=== PATIENT | female | born 1950 | race Caucasian/White ===

== ENCOUNTER 2017-10-31 18:53 | Emergency (ER) | payer MEDICARE, OTHER ==
--- NOTE | 2017-10-31 19:23 | ED PDOC ---
HPI: CCC, URI, Sore Throat Time Seen by Provider: 10/31/17 18:56 Chief Complaint (Nursing): ENT Problem Chief Complaint (Provider): FB History Per: Patient Additional Complaint(s): 67 yo female, PMH of anxiety, Patient reports she was drinking home made OJ, and a seed from the juice is now stuck in her throat. Complaints of difficulty swallowing and pain to her throat. Denies SOB. Able to speak in complete sentences. Swallowing saliva without difficulty. Past Medical History Reviewed: Nursing Documentation, Vital Signs Vital Signs: Last Vital Signs Temp 98.5 F 10/31/17 18:55 Pulse 73 10/31/17 18:55 Resp 16 10/31/17 18:55 BP 123/50 L 10/31/17 18:55 Pulse Ox 99 10/31/17 18:55 - Medical History PMH: Arthritis, Asthma Denies: Chronic Kidney Disease - Surgical History Surgical History: Cholecystectomy - Family History Family History: States: Unknown Family Hx - Living Arrangements Living Arrangements: With Family - Social History Current smoker - smoking cessation education provided: No Alcohol: None Drugs: Denies - Immunization History Hx Tetanus Toxoid Vaccination: No Hx Influenza Vaccination: No Hx Pneumococcal Vaccination: No - Home Medications Home Medications: Ambulatory Orders Medication Instructions Recorded Naproxen [Naprosyn] 500 mg PO Q12H #20 tab 11/12/14 Albuterol 0.083% [Albuterol 3 ml IH QID #100 neb 04/26/16 Sulfate 3 Ml] Albuterol HFA [Ventolin HFA 90 04/26/16 mcg/actuation (8 g)] Albuterol HFA [Ventolin HFA 90 1 puff IH QID PRN #1 puff 04/26/16 mcg/actuation (8 g)] Inhaler, Assist Devices [Space 1 each MC PRN #1 spacer 04/26/16 Chamber Plus] Prednisone 1 mg PO DAILY #5 tablet 04/26/16 - Allergies Allergies/Adverse Reactions: Allergies Allergy/AdvReac Type Severity Reaction Status Date / Time No Known Allergies Allergy Verified 04/26/16 16:11 Review of Systems ROS Statement: Except As Marked, All Systems Reviewed And Found Negative ENT: Positive for: Throat Pain Physical Exam - Reviewed Nursing Documentation Reviewed: Yes Vital Signs Reviewed: Yes - Physical Exam Appears: Positive for: Well, Non-toxic, No Acute Distress Head Exam: Positive for: ATRAUMATIC, NORMAL INSPECTION, NORMOCEPHALIC Skin: Positive for: Normal Color, Warm, DRY Eye Exam: Positive for: EOMI, Normal appearance, PERRL ENT: Negative for: Tonsillar Exudate, Tonsillar Swelling Neck: Positive for: Normal, Painless ROM Cardiovascular/Chest: Positive for: Regular Rate, Rhythm Respiratory: Positive for: CNT, Normal Breath Sounds Gastrointestinal/Abdominal: Positive for: Normal Exam, Soft Back: Positive for: Normal Inspection Extremity: Positive for: Normal ROM Neurologic/Psych: Positive for: Alert, Oriented - ECG O2 Sat by Pulse Oximetry: 99 Medical Decision Making Medical Decision Making: CT ordered to r/o FB Case endorsed to STANISLAW Adair at 2000 pending diagnostic review and re-eval Disposition - Clinical Impression Clinical Impression: Foreign body - Patient ED Disposition Is Patient to be Admitted: Transfer of Care - Disposition Disposition: Transfer of Care Disposition Time: 19:24 Condition: STABLE
[2017-10-31 19:43] LABS: BASO % 0.6 % (0.0-2.0); EOS # 0.2 K/uL (0.0-0.7); EOS % 2.2 % (0.0-4.0); HEMOGLOBIN 11.9 g/dL (12.0-16.0); LYMPH # 2.8 K/uL (1.0-4.3); MEAN CELL VOLUME 86.7 fl (81.0-99.0); MEAN CORPUSCULAR HGB CONC 33.4 g/dL (33.0-37.0); MEAN PLATELET VOLUME 7.9 fl (7.2-11.7); MONO # 0.6 K/uL (0.0-0.8); MONO % 7.7 % (0.0-10.0); NEUT # 3.9 K/uL (1.8-7.0); NEUT % 52.5 % (50.0-75.0); RBC 4.12 Mil/uL (3.80-5.20); RED CELL DISTRIBUTION WIDTH 14.5 % (11.5-14.5); WHITE BLOOD COUNT 7.5 K/uL (4.8-10.8)
[2017-10-31 19:57] LABS: ALB/GLOB RATIO 1.3 (1.0-2.1); ALBUMIN 4.1 g/dL (3.5-5.0); ALT/SGPT 20 U/L (9-52); AST/SGOT 24 U/L (14-36); BLOOD UREA NITROGEN 13 mg/dl (7-17); CALCIUM 9.4 mg/dL (8.4-10.2); GFR AFRICAN-AMERICAN > 60; GFR NON-AFRICAN AMERICAN > 60
[2017-10-31] MEDS ORDERED: Iohexol 300 100 ML IJ ONE (20:55)
[2017-10-31] MEDS ORDERED: Sodium Chloride 0.9% 50 ML IV ONE (20:56)
[2017-10-31 23:05] VITALS: BP 131/61; TEMP 98.6; O2SAT 98
--- NOTE | 2017-10-31 23:38 | ED PDOC ---
- Laboratory Results Result Diagrams: 10/31/17 19:35 10/31/17 19:35 - ECG O2 Sat by Pulse Oximetry: 98 Medical Decision Making Medical Decision Making: Case endorsed to me from CHERISE Whyte at [address] neck: FINDINGS: Oropharynx: Unremarkable. No significant tonsillar enlargement. No peritonsillar abscess. Hypopharynx: Unremarkable. Larynx: Unremarkable. Normal epiglottis. Trachea: Unremarkable. Retropharyngeal space: Unremarkable. Submandibular/parotid glands: Unremarkable. Glands are normal in size. Thyroid: Unremarkable. No enlarged or calcified nodules. Bones/joints: No acute fracture. Soft tissues: Unremarkable. Vasculature: No acute findings. Lymph nodes: Unremarkable. No lymphadenopathy. Lung apices: Unremarkable as visualized. IMPRESSION: No acute findings. No foreign body identified in the airway or upper esophagus. Dictated and Authenticated by: Du Allen MD 10/31/2017 10:24 PM Eastern Time ([place] & [place]) 2300 On re-evaluation, patient reports improvement of symptoms, denies any dyspnea, SOB. On exam, patient remains AAOx3, in no acute distress, speaking in full sentences, no drooling. T 98.6 P 82 R 16 R 16 O2sat 98%RA. Diagnostic results d/w the patient in great detail. Based on history, exam and diagnostic results, plan will be for outpatient follow up. Patient instructed to follow-up with pmd or referral provided in 1-2 days without fail. Advised to take medication as prescribed. Return to the emergency room at any time for any new or worsening symptoms. Patient states she fully agrees with and understands discharge instructions. States that she agrees with the plan and disposition. Verbalized and repeated discharge instructions and plan. I have given the patient opportunity to ask any additional questions. Disposition Counseled Patient/Family Regarding: Studies Performed, Diagnosis, Need For Followup - Clinical Impression Clinical Impression: Foreign body - POA Present On Arrival: None - Disposition Referrals: Pedro Duran MD [Staff Provider] - Disposition: Routine/Home Disposition Time: 23:30 Condition: STABLE Additional Instructions: Thank you for letting us take care of you today. You were treated for FB sensation to throat. The emergency medical care you received today was directed towards the acute presenting symptoms. Return to the Emergency Department at any time if symptoms worsen, do not improve, or if any other problems arise. Please contact your doctor in 2 days for re-evaluation and follow up / or call one of the physicians/clinics you have been referred to that are listed on the Patient Visit Information form that is included in your discharge packet. Bring any paperwork you were given at discharge with you along with any medications to your follow up visit. Our treatment cannot replace ongoing medical care by a primary care provider (PCP) outside of the emergency department. Thank you for allowing the [facility] team to be part of your care today. Instructions: Foreign Body, Swallowed, Adult Forms: [employer] ([place]) - PA / DINING ROOM HOSTESS / Resident Statement MD/DO has reviewed & agrees with the documentation as recorded.
[2017-10-31 23:57] VITALS: PULSE 82; RESP 16
--- NOTE | 2017-11-01 11:27 | CT ---
Date of service: 10/31/2017 PROCEDURE: CT NECK WITH CONTRAST HISTORY: r/o FB COMPARISON: None TECHNIQUE: CT of the neck with intravenous contrast. Coronal and sagittal reformats generated. Intravenous contrast dose: Omnipaque 300, 75 cc Radiation dose: DLP 203.45 mGy-cm This CT exam was performed using one or more of the following dose reduction techniques: Automated exposure control, adjustment of the mA and/or kV according to patient size, and/or use of iterative reconstruction technique. FINDINGS: No retained radiodense foreign body is seen throughout the supra and infrahyoid neck soft tissues including the pharynx and esophagus. NASOPHARYNX: Unremarkable. SUPRAHYOID NECK: Unremarkable oropharynx, oral cavity, parapharyngeal space and retropharyngeal space. INFRAHYOID NECK: Unremarkable larynx, hypopharynx, and supraglottic space. Vocal cords intact. MASS: None identified. GLANDS: Parotid and submandibular glands unremarkable. Normal size thyroid gland, without nodule. LYMPH NODES: Normal. No lymphadenopathy. CERVICAL SPINE: No fracture or focal lesion. VASCULAR STRUCTURES: Unremarkable. OTHER FINDINGS: Incidental biapical pulmonary fibrosis appreciated, right greater than left. IMPRESSION: Unremarkable contrast enhanced CT of the neck. No retained radiodense foreign body appreciated in the pharyngo esophageal anatomy or airway as imaged. Concordant preliminary report from [facility], 10/31/2017.
== END 2017-11-01 00:22 | disposition home or self-care (01) ==
LOC: H.ER 18:53
DX: R09.89 Other specified symptoms and signs involving the circulatory and respiratory systems (principal); R13.10 Dysphagia, unspecified
CPT/HCPCS: 70491; 80053; 85025; 99283; Q9967